=== PATIENT | male | born 1985 | race Caucasian/White ===

== ENCOUNTER 2016-11-20 19:15 | Emergency (ER) | payer OTHER ==
[~2016-11-20] VITALS: Ht 193 cm; Wt 68.0 kg
[2016-11-20 19:54] LABS: ABSOLUTE BASOPHIL COUNT 0 /CUMM (0.0-0.2); ABSOLUTE EOSINOPHIL COUNT 0 /CUMM (0.0-0.7); ABSOLUTE GRANULOCYTE CT 6.2 /CUMM (1.4-6.5); ABSOLUTE LYMPH COUNT 1.3 /CUMM (1.2-3.4); ABSOLUTE MONOCYTE COUNT 0.4 /CUMM (0.10-0.60); BASOPHIL % 0.2 % (0.0-2.0); EOSINOPHIL % 0.1 % (0-5); GRANULOCYTE % 78.4 % (42.2-75.2); HEMATOCRIT 45.7 % (42-52); MEAN CORPUSCULAR HGB 28.4 PG (27.0-31.0); MEAN CORPUSCULAR HGB CONC 34.1 G/DL (33.0-37.0); MEAN CORPUSCULAR VOLUME 83.3 FL (80.0-94.0); MEAN PLATELET VOLUME 7.4 FL (7.4-10.4); PLATELET COUNT 313 /CUMM (130-400); RBC DISTRIBUTION WIDTH 12.6 % (11.5-14.5); RED BLOOD CELL CT 5.49 /CUMM (4.70-6.10); WHITE BLOOD CELL COUNT 7.9 /CUMM (4.8-10.8)
--- NOTE | 2016-11-20 20:50 | ED CARDIAC/CP/PALPITATIONS ---
History of Present Illness General Chief Complaint: Chest Pain Stated Complaint: CP Source: patient, family Exam Limitations: no limitations Vital Signs & Intake/Output Vital Signs & Intake/Output Vital Signs Date Time Temp Pulse Resp B/P B/P Pulse O2 O2 Flow FiO2 Mean Ox Delivery Rate 11/200 97.6 86 18 130/85 96 11/20 1925 97.8 106 18 145/92 98 Room Air ED Intake and Output 11/21 0000 11/20 1200 Intake Total Output Total Balance Patient 150 lb Weight Weight Reported by Patient Measurement Method Allergies Coded Allergies: No Known Allergies (11/20/16) Reconcile Medications No Known Home Medications Triage Note: 31 YO MALE TO TRIAGE C/O L ARM TINGLING AND CHEST PAIN. STATES HE WENT TO THE WALK IN TODAY AND THEY DID AND EKG AND GAVE HIM MAALOX AND LIDOCAINE. STATES "ALL IT DID WAS MAKE MY MOUTH DRY" STATES HE ABD PAIN THIS AM BUT THAT IS NOW GONE. EKG COMPLETED ON ARRIVAL. Triage Nurses Notes Reviewed? yes HPI: Patient presents for evaluation of a pounding chest discomfort. Patient states that he feels like his chest "would explode". Symptoms began about 10:00 in the morning. Was seen subsequently a walk-in center at about 2:30 in the afternoon. EKG was done and that apparently was all right. He went home showered and then felt that his left arm "fell asleep". In addition he was feeling "a hot iron in my chest". He denies any associated dyspnea and diaphoresis or palpitations. There is no change with deep inspiration or movement. Patient states he has only a small caffeine intake daily typically one small cup of coffee. He denies cigarette smoking or drug abuse. Alcohol intake consists of 2-4 beers daily for the last few years. Family history of atrial fibrillation and coronary artery disease in his grandmother. Past History Travel History Traveled to [place] past 21 day No Medical History Any Pertinent Medical History? 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 No Review of Systems Review of Systems Constitutional: Reports: no symptoms. EENTM: Reports: no symptoms. Respiratory: Reports: no symptoms. Cardiovascular: Reports: chest pain. GI: Reports: no symptoms. Genitourinary: Reports: no symptoms. Musculoskeletal: Reports: no symptoms. Skin: Reports: no symptoms. Neurological/Psychological: Reports: tingling. Hematologic/Endocrine: Reports: no symptoms. Immunologic/Allergic: Reports: no symptoms. All Other Systems: Reviewed and Negative Physical Exam Physical Exam Cardiovascular: SEE BELOW Comments: Gen.: Well-nourished, well-developed, no acute respiratory distress. Head: Normocephalic, atraumatic. Eyes: Normal inspection bilaterally Ears: Normal inspection bilaterally Nose: Normal inspection Throat/mouth : Moist mucosa Neck: Supple, full range of motion, no goiter Heart: Regular rate and rhythm, no murmurs rubs or gallops Lungs: Clear to auscultation bilaterally with normal air entry Chest: Nontender Back: Normal range of motion Abdomen: Soft, nontender, nondistended, normal bowel sounds Extremities: Normal range of motion grossly, equal radial pulses, no cyanosis clubbing or edema, calves nontender Neurologic: Cranial nerves grossly intact, speech is clear Skin: warm and dry Psychiatric: Calm, cooperative, no apparent delusions or hallucinations Core Measures ACS in differential dx? Yes Severe Sepsis Present: No Septic Shock Present: No Progress Differential Diagnosis: AMI, musculoskeletal pain, PUD/GERD, unstable angina Plan of Care: Orders Procedure Date/time Status Add-on Test (ER Only) 11/20 2345 Active TROPONIN LEVEL 11/20 2329 Complete EKG 11/20 2329 Active Add-on Test (ER Only) 11/21 2203 Active Add-on Test (ER Only) 11/20 2048 Active THYROID STIMULATING HORMONE 11/20 1944 Complete LYME TITRE 11/20 1944 Active D-DIMER 11/20 1944 Complete URINE DRUG SCREEN FOR ER ONLY 11/21 1943 Complete TROPONIN LEVEL 11/21 1931 Complete COMPREHENSIVE METABOLIC PANEL 11/21 1931 Complete CBC WITHOUT DIFFERENTIAL 11/21 1931 Complete EKG 11/20 1914 Active Laboratory Tests 11/20/16 2336: Troponin I < 0.01 11/20/16 204: Urine Opiates Screen < 100.00, Methadone Screen < 40, Barbiturate Screen < 60, Ur Phencyclidine Scrn < 6.00, Amphetamines Screen < 100, U Benzodiazepines Scrn < 85, Urine Cocaine Screen < 50, Urine Cannabis Screen < 5.00 11/20/16 1945: Anion Gap 15, Estimated GFR > 60, BUN/Creatinine Ratio 11.1, Glucose 115 H, Calcium 9.6, Total Bilirubin 0.9, AST 23, ALT 37, Alkaline Phosphatase 52, Troponin I < 0.01, Total Protein 7.3, Albumin 4.7, Globulin 2.6, Albumin/ Globulin Ratio 1.8, TSH 1.470, D-Dimer 550 H, CBC w Diff NO MAN DIFF REQ, RBC 5.49, MCV 83.3, MCH 28.4, RDW 12.6, MPV 7.4, Gran % 78.4 H, Lymphocytes % 16.0 L, Monocytes % 5.3, Eosinophils % 0.1, Basophils % 0.2, Absolute Granulocytes 6.2, Absolute Lymphocytes 1.3, Absolute Monocytes 0.4, Absolute Eosinophils 0, Absolute Basophils 0, PUBS MCHC 34.1, Lyme Disease Antibody Pending Diagnostic Imaging: Discussed w/RAD: Radiology Read. Radiology Impression: PATIENT: ARTURO STEELE PRESENT AGE: 31 PATIENT ACCOUNT NO: [id number] : 85 LOCATION: [facility] ORDERING PHYSICIAN: SANJU FAY MD SERVICE DATE: 11/20/16 EXAM TYPE: CAT - CTA CHEST-PULMONARY EMBOLISM EXAMINATION: CT ANGIOGRAM OF THE CHEST WITH AND WITHOUT CONTRAST (CT PULMONARY ANGIOGRAM FOR PE) CLINICAL INFORMATION: Symptoms: HEART POUNDING, ELEVATED D DIMER, TACHYCARDIA
COMPARISON: None TECHNIQUE: Prior to contrast administration, noncontrast localization images were obtained. Subsequently, multidetector volumetric imaging was performed from the thoracic inlet to below the diaphragms following the administration of 95 mL Optiray 320 intravenous contrast. No contrast reaction reported. Sagittal, coronal, and MIP oblique sagittal reformatted images were obtained on the CT workstation, uploaded to PACS, and reviewed. Total exam dose-length product 278.07 mGy-cm. FINDINGS: QUALITY OF STUDY/CONTRAST BOLUS: Satisfactory PULMONARY ARTERIES: No central or segmental pulmonary emboli. THORACIC AORTA: No aneurysm or dissection. LUNG: Normal variant of azygos lobe at right lung apex. Lungs are clear. No nodule or reticular opacities. Central bronchial airways are open. PLEURA: No pleural effusion or pneumothorax. MEDIASTINUM: Normal heart size. No pericardial effusion. No hilar or mediastinal lymphadenopathy. No evidence of septal bowing or right heart strain. CHEST WALL/AXILLA: No axillary or internal mammary lymphadenopathy. OSSEOUS STRUCTURES: No acute or suspicious osseous abnormality. UPPER ABDOMEN: Unremarkable. No reflux of contrast into the hepatic veins to suggest elevated right heart pressures. IMPRESSION: Normal CT of chest. No evidence of pulmonary embolism. VTE: negative DICTATED BY: JENNIFER HANSON MD DATE/TIME DICTATED:11/20/162328 CRUDE OIL TREATER:ALSTON DATE/TIME TRANSCRIBED:11/20/162328 CONFIDENTIAL, DO NOT COPY WITHOUT APPROPRIATE AUTHORIZATION. <Electronically signed in Other Vendor System> SIGNED BY: JENNIFER HANSON MD 11/20/162349 CXR Impression: PATIENT: ARTURO STEELE PRESENT AGE: 31 PATIENT ACCOUNT NO: [id number] : 85 LOCATION: [facility] ORDERING PHYSICIAN: SANJU FAY MD SERVICE DATE: 11/20/16 EXAM TYPE: RAD - XRY-CHEST XRAY, PA AND LATERAL EXAMINATION: XR CHEST CLINICAL INFORMATION: Chest pain. Palpitations. COMPARISON: None TECHNIQUE: 2 views of the chest were obtained. FINDINGS: Normal variant of azygos lobe at right lung apex. No significant abnormality is noted involving the heart, lungs, mediastinum, bony thorax or soft tissues. IMPRESSION: Unremarkable examination. DICTATED BY: JENNIFER HANSON MD DATE/TIME DICTATED:11/20/162101 CRUDE OIL TREATER:ALSTON DATE/TIME TRANSCRIBED:11/20/162101 CONFIDENTIAL, DO NOT COPY WITHOUT APPROPRIATE AUTHORIZATION. <Electronically signed in Other Vendor System> SIGNED BY: JENNIFER HANSON MD 11/20/162106 Initial ED EKG: sinus tachycardia with a ventricular rate of 111 Repeat EKG: changed (HEART RATE NOW NORMAL) Comments: 11/21/2016 1:33:48 AM I updated Arturo after the initial evaluation. He was agreeable to a repeat EKG and troponin. In the meantime his d-dimer returned elevated. CAT scan of the chest was ordered that showed no pulmonary embolism or aortic disease. Repeat EKG and troponin are normal. I have updated Arturo again along with his father. 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 I've asked that he follow-up with his primary care physician for the possibility of treatment for stress and/or anxiety. Departure Departure Disposition: HOME OR SELF CARE Condition: Stable Clinical Impression Primary Impression: Palpitations Referrals: TIFFANIE HESTER MD (PCP/Family) Additional Instructions: Follow-up with your primary care doctor for reevaluation this week. Return if any concerns or sudden worsening. Please note that there might be incidental findings in your evaluation that are unrelated to the current emergency department visit. Please notify your primary care doctor about this emergency department visit in order to obtain and review all of the testing performed so that these incidental findings can be monitored as needed. If you had an x-ray performed, please understand that some fractures may not be seen on the initial set of x-rays. If your symptoms persist you might need a repeat set of x-rays to check for such a fracture. If you had a laceration evaluated, please understand that foreign bodies such as glass or wood may not be visible to the naked eye or on plain x-rays. If the wound becomes red, swollen, increasingly more painful or if there is any drainage from the wound, please have it reevaluated by a physician for the possibility of a retained foreign body. Thank you for choosing the [facility] Emergency Department for your care. It was a pleasure to serve you today. Sanju Fay M.D. [facility] Departure Forms: Customer Survey General Discharge Information Prescriptions: Current Visit Scripts No Known Home Medications Critical Care Note Critical Care Note Critical Care Time: non-applicable
--- NOTE | 2016-11-20 21:07 | RADIOLOGY REPORT ---
EXAMINATION: XR CHEST CLINICAL INFORMATION: Chest pain. Palpitations. COMPARISON: None TECHNIQUE: 2 views of the chest were obtained. FINDINGS: Normal variant of azygos lobe at right lung apex. No significant abnormality is noted involving the heart, lungs, mediastinum, bony thorax or soft tissues. IMPRESSION: Unremarkable examination.
--- NOTE | 2016-11-20 23:50 | CT SCAN REPORT ---
EXAMINATION: CT ANGIOGRAM OF THE CHEST WITH AND WITHOUT CONTRAST (CT PULMONARY ANGIOGRAM FOR PE) CLINICAL INFORMATION: Symptoms: HEART POUNDING, ELEVATED D DIMER, TACHYCARDIA
COMPARISON: None TECHNIQUE: Prior to contrast administration, noncontrast localization images were obtained. Subsequently, multidetector volumetric imaging was performed from the thoracic inlet to below the diaphragms following the administration of 95 mL Optiray 320 intravenous contrast. No contrast reaction reported. Sagittal, coronal, and MIP oblique sagittal reformatted images were obtained on the CT workstation, uploaded to PACS, and reviewed. Total exam dose-length product 278.07 mGy-cm. FINDINGS: QUALITY OF STUDY/CONTRAST BOLUS: Satisfactory PULMONARY ARTERIES: No central or segmental pulmonary emboli. THORACIC AORTA: No aneurysm or dissection. LUNG: Normal variant of azygos lobe at right lung apex. Lungs are clear. No nodule or reticular opacities. Central bronchial airways are open. PLEURA: No pleural effusion or pneumothorax. MEDIASTINUM: Normal heart size. No pericardial effusion. No hilar or mediastinal lymphadenopathy. No evidence of septal bowing or right heart strain. CHEST WALL/AXILLA: No axillary or internal mammary lymphadenopathy. OSSEOUS STRUCTURES: No acute or suspicious osseous abnormality. UPPER ABDOMEN: Unremarkable. No reflux of contrast into the hepatic veins to suggest elevated right heart pressures. IMPRESSION: Normal CT of chest. No evidence of pulmonary embolism. VTE: negative
[2016-11-21 01:37] VITALS: BP 134/77
== END 2016-11-21 01:47 ==
LOC: ERH 19:15
PROVIDERS: Emergency Medicine
DX: R00.2 Palpitations (principal)
CPT/HCPCS: 86618; 80307; 93005; 93010